=== PATIENT | male | born 1995 | race Caucasian/White ===

== ENCOUNTER 2023-09-09 15:08 | Emergency (ER) | payer SELFPAY ==
[~2023-09-09] VITALS: Ht 182.9 cm; Wt 72.6 kg
[2023-09-09 15:16] VITALS: BP 138/89; PULSE 78; RESP 18; TEMP 99.3; O2SAT 100
[2023-09-09] MEDS: IBUPROFEN 600 MG TAB PO ONE (16:37)
[2023-09-09] MEDS ORDERED: IBUP-2213 PO (16:58)
== END 2023-09-09 17:09 | disposition home or self-care (01) ==
LOC: MED 15:08
DX: S93.691A Other sprain of right foot, initial encounter (principal); Z79.899 Other long term (current) drug therapy; W52.XXXA Crushed, pushed or stepped on by crowd or human stampede, initial encounter; Y93.89 Activity, other specified; Y92.89 Other specified places as the place of occurrence of the external cause; Y99.8 Other external cause status
CPT/HCPCS: 73610; 73630; 99284